=== PATIENT | female | born 1985 | race African-American/Black ===

== ENCOUNTER 2018-09-14 19:25 | Inpatient (IN) | payer MEDICAID ==
[~2018-09-14] VITALS: Ht 170.2 cm; Wt 68.0 kg
--- NOTE | 2018-09-14 19:26 | NUR ---
ED Nurse Note: pt brought in by [facility] R34 from [facility] [place], tonic clonic x 1min witnessed by bystanders, no sz activity with EMS. Pt states she hasn't been taking sz med for long time but states she used to take depakote. pt AA&ox4, gcs=15, skin warm and dry, resp even and unlabored RA, airway intact, no oral trauma or other sx injury nor open wound noted, -n/v/d, VSS, will cont monitor. sz and aspiration precaution started. BS on field 87
[2018-09-14 19:28] VITALS: BP 101/67
[2018-09-14] MEDS ORDERED: DEPAKOTE125 MG PO (19:28)
--- NOTE | 2018-09-14 19:40 | NUR ---
ED Nurse Note: pt states she was at [facility] on 09/11/18 for sz, pt states she hasn't been taking med 4-5days but usually takes depakote, she was supposed to visit her friend in [place]. HARVEY notified.
--- NOTE | 2018-09-14 19:47 | Emergency Room Report ---
History of Present Illness General Chief Complaint: Seizure Source: Patient Present Illness HPI 33-year-old female p/w seizure. Per EMS, patient was in [place]', Patient had witnessed seizure by bystanders , generalized tonic clonic, lasted 1 minutes. Unknown if head hit on ground. + post ictal phase Patient denies tongue biting, no urinary incontinence. Patient has had seizures for several years. Anti seizure medications include Depakote. Patient's that she stopped taking the medication 5 days ago. Unclear why. She is not very cooperative with the history taking. No recent fever, chills, chest pain, sob, cough, n/v/d, abdominal pain. Currently denying BUCKLEY, neck pain, blurry vision, motor or sensory weakness. Allergies: Coded Allergies: No Known Allergies (Unverified , 09/14/18) Patient History Past Medical History: see triage record Past Surgical History: none Pertinent Family History: none Last Menstrual Period: NA Now: No Reviewed Nursing Documentation: PMH: Agreed; PSxH: Agreed Nursing Documentation-PMH Past Medical History: No Stated History Hx Neurological Problems: Yes - SEIZURES Review of Systems All Other Systems: negative except mentioned in HPI Physical Exam Vital Signs Date Time Temp Pulse Resp B/P (MAP) Pulse Ox O2 Delivery O2 Flow Rate FiO2 09/14/18 19:20 98.1 79 14 123/61 98 Room Air Sp02 EP Interpretation: reviewed, normal General Appearance: alert, GCS 15, non-toxic, mild distress Head: normocephalic, atraumatic Eyes: bilateral eye normal inspection, bilateral eye PERRL, bilateral eye EOMI ENT: normal ENT inspection, normal pharynx, normal voice, moist mucus membranes Neck: normal inspection, full range of motion, supple Respiratory: normal inspection, lungs clear, normal breath sounds, no respiratory distress, no retraction, no wheezing, speaking full sentences, chest symmetrical Cardiovascular #1: normal inspection, regular rate, rhythm, no edema, normal capillary refill Cardiovascular #2: 2+ radial (R), 2+ radial (L) Gastrointestinal: normal inspection, non tender, soft, non-distended, no guarding Musculoskeletal: normal inspection, back normal, normal range of motion, non- tender Neurologic: normal inspection, alert, oriented x3, responsive, motor strength/ tone normal, sensory intact, normal gait, speech normal Psychiatric: normal inspection, judgement/insight normal, memory normal Skin: normal inspection, normal color, no rash, warm/dry, well hydrated, normal turgor Procedures Critical Care Time Critical Care Time Critical care time of 40 minutes, was performed in order to assess and manage the high probability of imminent or life threatening deterioration, with frequent reassessment and excludes all billable procedures. Medical Decision Making Diagnostic Impression: Primary Impression: Seizure disorder Additional Impressions: Hypocalcemia Hypokalemia Polysubstance (excluding opioids) dependence ER Course 33-year-old female with p/w seizure DDX: Primary seizure, triggered by infection UTI/PNA vs. dehydration vs. medication non compliance Electrolyte disturbance: hypoglycemia vs. hyponatremia vs. hypocalcemia vs. hypomagnesemia Cardiac: Arrythmia/acs Intracranial pathology: intracranial bleed Tox Plan: BGM EKG, UCG Labs, seizure medication levels, tox labs Consider CT ER course: No further seizures in ED Has been stable during ED stay. AOx4, no neurological signs or symptoms measured corrected calcium is 7.24, which is technically low. in presence of her having seizure, IV calcium was given. unclear for reason of the hypocalcemia also hypokalemic for supplementation was given pt also positive for polysubstance abuse Disposition: Requires admission for seizures and electrolyte disturbances DW Dr Yung Still pending final CT read EKG Diagnostic Results EP Interpretation: Yes Rate: 58 Rhythm: NSR ST Segments: No acute changes ASA given to patient: No Rhythm Strip EP Interpretation: Yes Rate: 60 Rhythm: NSR, no PVCs, no ectopy Chest X-ray CXR: Ordered: Yes 1 view Indication: Chest pain EP interpretation: Yes Interpretation: No consolidation, no effusion, no PTX, no acute cardiopulmonary disease Impression: No acute disease Electronically signed by Blake Mansfield MD Laboratory Tests Test 09/14/18 19:52 09/14/18 19:58 Urine Color Yellow Urine Appearance Clear Urine pH 5 (4.5-8.0) Urine Specific [place] 1.020 (1.005-1.035) Urine Protein 1+ (NEGATIVE) H Urine Glucose (UA) Negative (NEGATIVE) Urine Ketones 1+ (NEGATIVE) H Urine Blood Negative (NEGATIVE) Urine Nitrite Negative (NEGATIVE) Urine Bilirubin Negative (NEGATIVE) Urine Urobilinogen 1 MG/DL (0.0-1.0) H Urine Leukocyte Esterase 1+ (NEGATIVE) H Urine RBC 0 /HPF (0 - 2) Urine WBC 0-2 /HPF (0 - 2) Urine Squamous Epithelial Cells Occasional /LPF Urine Bacteria Few /HPF (NONE) Urine HCG, Qualitative Negative (NEGATIVE) Urine Opiates Screen Negative (NEGATIVE) Urine Barbiturates Screen Negative (NEGATIVE) Phencyclidine (PCP) Screen Negative (NEGATIVE) Urine Amphetamines Screen Positive (NEGATIVE) H Urine Benzodiazepines Screen Negative (NEGATIVE) Urine Cocaine Screen Positive (NEGATIVE) H Urine Marijuana (THC) Screen Positive (NEGATIVE) H White Blood Count 6.9 K/UL (4.8-10.8) Red Blood Count 4.28 M/UL (4.20-5.40) Hemoglobin 10.8 G/DL (12.0-16.0) L Hematocrit 33.9 % (37.0-47.0) L Mean Corpuscular Volume 79 FL (80-99) L Mean Corpuscular Hemoglobin 25.1 PG (27.0-31.0) L Mean Corpuscular Hemoglobin Concent 31.7 G/DL (32.0-36.0) L Red Cell Distribution Width 13.4 % (11.6-14.8) Platelet Count 246 K/UL (150-450) Mean Platelet Volume 7.5 FL (6.5-10.1) Neutrophils (%) (Auto) 62.2 % (45.0-75.0) Lymphocytes (%) (Auto) 27.8 % (20.0-45.0) Monocytes (%) (Auto) 8.3 % (1.0-10.0) Eosinophils (%) (Auto) 0.2 % (0.0-3.0) Basophils (%) (Auto) 1.5 % (0.0-2.0) Sodium Level 145 MMOL/L (136-145) Potassium Level 2.3 MMOL/L (3.5-5.1) *L Chloride Level 114 MMOL/L (98-107) H Carbon Dioxide Level 20 MMOL/L (21-32) L Anion Gap 11 mmol/L (5-15) Blood Urea Nitrogen 10 mg/dL (7-18) Creatinine 0.7 MG/DL (0.55-1.30) Estimate Glomerular Filtration Rate > 60 mL/min (>60) Glucose Level 61 MG/DL (74-106) L Calcium Level 5.9 MG/DL (8.5-10.1) *L Total Bilirubin 0.1 MG/DL (0.2-1.0) L Aspartate Amino Transferase (AST) 15 U/L (15-37) Alanine Aminotransferase (ALT) 8 U/L (12-78) L Alkaline Phosphatase 33 U/L (46-116) L Total Creatine Kinase 108 U/L (26-308) Troponin I 0.009 ng/mL (0.000-0.056) Total Protein 4.4 G/DL (6.4-8.2) L Albumin 2.2 G/DL (3.4-5.0) L Globulin 2.2 g/dL Albumin/Globulin Ratio 1.0 (1.0-2.7) Salicylates Level 2.1 ug/mL (2.8-20) L Acetaminophen Level 8 MCG/ML (10-30) L Serum Alcohol < 3 mg/dL CT/MRI/US Diagnostic Results CT/MRI/US Diagnostic Results : Imaging Test Ordered: CT HEAD Impression normal Last Vital Signs Date Time Temp Pulse Resp B/P (MAP) Pulse Ox O2 Delivery O2 Flow Rate FiO2 09/14/18 19:20 98.1 79 14 123/61 98 Room Air Disposition: ADMITTED INPATIENT Condition: Serious Blake Mansfield M.D. Sep 14, 2018 19:46
--- NOTE | 2018-09-14 20:13 | NUR ---
ED Nurse Note: contacted pharmacy for med.
[2018-09-14 20:15] LABS: BASOPHILS % (AUTO) 1.5 % (0.0-2.0); EOSINOPHILS % (AUTO) 0.2 % (0.0-3.0); HEMATOCRIT 33.9 % (37.0-47.0); HEMOGLOBIN 10.8 G/DL (12.0-16.0); LYMPHOCYTES % (AUTO) 27.8 % (20.0-45.0); MEAN CORPUSCULAR VOLUME 79 FL (80-99); MONOCYTES % (AUTO) 8.3 % (1.0-10.0); NEUTROPHILS % (AUTO) 62.2 % (45.0-75.0); PLATELET COUNT 246 K/UL (150-450); RED BLOOD COUNT 4.28 M/UL (4.20-5.40); RED CELL DISTRIBUTION WIDTH 13.4 % (11.6-14.8); WHITE BLOOD COUNT 6.9 K/UL (4.8-10.8)
[2018-09-14] MEDS ORDERED: Depakote 500mg tab ORAL ONE (20:15)
[2018-09-14 20:18] LABS: APPEARANCE,URINE CLEAR; BILIRUBIN, URINE NEGATIVE (NEGATIVE); GLUCOSE, URINE (UA) NEGATIVE (NEGATIVE); KETONES,URINE 1+ (NEGATIVE); LEUKOCYTE ESTERASE ,URINE 1+ (NEGATIVE); NITRITE,URINE NEGATIVE (NEGATIVE); PH,URINE 5 (4.5-8.0); PROTEIN,URINE 1+ (NEGATIVE); UROBILINOGEN,URINE 1 MG/DL (0.0-1.0)
[2018-09-14 20:20] LABS: COLOR,URINE YELLOW
[2018-09-14 20:30] LABS: ALANINE AMINOTRANSFERASE 8 U/L (12-78); ALBUMIN 2.2 G/DL (3.4-5.0); ALKALINE PHOSPHATASE 33 U/L (46-116); ANION GAP 11 mmol/L (5-15); ASPARTATE AMINO TRANSFERASE 15 U/L (15-37); BILIRUBIN,TOTAL 0.1 MG/DL (0.2-1.0); BLOOD UREA NITROGEN 10 mg/dL (7-18); CARBON DIOXIDE 20 MMOL/L (21-32); CHLORIDE 114 MMOL/L (98-107); CREATINE KINASE 108 U/L (26-308); CREATININE 0.7 MG/DL (0.55-1.30); SODIUM 145 MMOL/L (136-145)
[2018-09-14 20:37] LABS: CALCIUM 5.9 MG/DL (8.5-10.1); POTASSIUM 2.3 MMOL/L (3.5-5.1)
[2018-09-14] MEDS ORDERED: Calcium Gluconate 10% 1 GM in NS 110 ML IVPB ONE (20:45)
[2018-09-14 21:30] VITALS: BP 110/51
--- NOTE | 2018-09-14 22:35 | NUR ---
ED Nurse Note: pt report given RN Jyoti to continue care, pt transferred to tele, vss, no sz activity occured during shift, no neuro changes, vss, NSR on front desk monitor. all belongings sent w/ pt, pt refused vre/cre.
[2018-09-14 23:00] VITALS: BP 114/71
--- NOTE | 2018-09-14 23:24 | NUR ---
NURSE NOTES: Pt. is not cooperating when asked about her history. She states, "I'm sick. Just let me sleep please."
--- NOTE | 2018-09-14 23:28 | NUR ---
NURSE NOTES: Pt. was given 60 meq K Dur PO once and calcium gluconate 10% 1 gm in NS 110ml @ 240cc/hr once in ER.
--- NOTE | 2018-09-14 23:30 | NUR ---
NURSE NOTES: Received pt. at 2300 via gurney from ED. Pt. transferred to bed without any incident. Pt. is A/O x 4. [place] pt. to unit, room, and hospital policies. Received report from CINDY Jacobson. primary school teacher librarian is in placed, IV site intact, asymptomatic and patent. Belongings list checked and accounted. Bed is in the lowest position and locked. Call light within reach. No seizure activity or acute distress noted at this time. Will contact Dr. Gamez for admission orders.
--- NOTE | 2018-09-14 23:36 | NUR ---
NURSE NOTES: Received admission orders from Dr. Gamez. Will note and carry out.
[2018-09-15] VITALS (7 sets, daily range): BP systolic 110–169; BP diastolic 24–84
[2018-09-15] MEDS ORDERED: Acetaminophen 500mg (ES) tab ORAL PRN (00:30)
[2018-09-15] MEDS ORDERED: LORazepam Inj 2mg/ml 1ml IV PRN (00:30)
[2018-09-15] MEDS: 1/2NS w/KCl 20mEq 1000ml 1,000 ML IV SCH ×3 (01:33→23:22)
[2018-09-15 06:41] LABS: BASOPHILS % (AUTO) 1.6 % (0.0-2.0); EOSINOPHILS % (AUTO) 0.9 % (0.0-3.0); HEMATOCRIT 34.2 % (37.0-47.0); LYMPHOCYTES % (AUTO) 35.8 % (20.0-45.0); MEAN CORPUSCULAR VOLUME 79 FL (80-99); MONOCYTES % (AUTO) 9.5 % (1.0-10.0); NEUTROPHILS % (AUTO) 52.2 % (45.0-75.0); PLATELET COUNT 243 K/UL (150-450); RED CELL DISTRIBUTION WIDTH 13.4 % (11.6-14.8); WHITE BLOOD COUNT 5.7 K/UL (4.8-10.8)
--- NOTE | 2018-09-15 07:02 | NUR ---
CASE MANAGEMENT:REVIEW 33 YR OLD FEMALE BIBA FROM [facility] CC: SEIZURE. NOT TAKING MEDS 4-5 DAYS SI: SEIZURE. HYPOCALCEMIA. HYPOKALEMIA 98.0 79 14 123/61 98% ON RA K-2.3 CA-5.9 URINE TOX(+0 AMPHETAMINES, COCAINE AND THC IS: IV CA GLUCONATE KCL 40 MEQ PO DEPAKOTE PO : TO TELEMETRY IS: IVF NS@60/HR DEPAKOTE PO TID INTERQUAL CRITERIA MET
[2018-09-15 07:20] LABS: ALANINE AMINOTRANSFERASE 14 U/L (12-78); ALKALINE PHOSPHATASE 52 U/L (46-116); ANION GAP 11 mmol/L (5-15); ASPARTATE AMINO TRANSFERASE 18 U/L (15-37); BILIRUBIN,TOTAL 0.3 MG/DL (0.2-1.0); BLOOD UREA NITROGEN 12 mg/dL (7-18); CALCIUM 8.6 MG/DL (8.5-10.1); CARBON DIOXIDE 25 MMOL/L (21-32); CHLORIDE 106 MMOL/L (98-107); CREATININE 0.9 MG/DL (0.55-1.30); SODIUM 142 MMOL/L (136-145)
--- NOTE | 2018-09-15 07:25 | NUR ---
NURSE NOTES: I received the patient resting in bed. Patient does not display any signs of distress or SOB. Bed in the lowest position and call light within reach.
--- NOTE | 2018-09-15 07:47 | NUR ---
HAND-OFF: Report given to CINDY Green.
--- NOTE | 2018-09-15 07:51 | Diagnostic Imaging Report ---
Indications: Dizziness and seizure Technique: Spiral acquisitions obtained through the brain. Angled axial and coronal 5 x 5 mm slices were reconstructed. Total dose length product 1291.63 mGycm. CTDI vol(s) 70.38 mGy. Dose reduction achieved using automated exposure control Comparison: Findings: No acute intracranial hemorrhage or edema, mass effect, nor midline shift. Normal george-white differentiation. Normal-sized ventricles and extra-axial CSF spaces. Intact calvarium. Visualized orbits and sinuses are unremarkable. Impression: Negative This agrees with the preliminary interpretation provided overnight by Dr. Mora The CT scanner at [facility] is accredited by the [employer] and the scans are performed using protocols designed to limit radiation exposure to as low as reasonably achievable to attain images of sufficient resolution adequate for diagnostic evaluation.
--- NOTE | 2018-09-15 08:40 | Consultation ---
History of Present Illness General Date patient seen: Sep 15, 2018 Present Illness Allergies: Coded Allergies: No Known Allergies (Unverified , 09/14/18) Medication History Miscellaneous Medications Divalproex Sodium (Depakote), 125 MG PO, (Reported) Patient History Healthcare decision maker Resuscitation status Full Code Advanced Directive on File Physical Exam Last 24 Hour Vital Signs Date Time Temp Pulse Resp B/P (MAP) Pulse Ox O2 Delivery O2 Flow Rate FiO2 09/15/18 04:00 69 09/15/18 04:00 97.5 69 17 121/65 (83) 98 09/15/18 00:00 98.0 71 18 115/72 (86) 99 09/15/18 00:00 58 09/14/18 23:37 Room Air 09/14/18 23:00 97.7 61 18 114/71 (85) 99 09/14/18 22:35 98.8 72 18 108/67 98 Room Air 09/14/18 21:30 98.1 70 18 110/51 98 Room Air 09/14/18 19:28 98.1 68 18 101/67 98 Room Air 09/14/18 19:28 80 18 Room Air 09/14/18 19:20 98.1 79 14 123/61 98 Room Air Laboratory Tests Test 09/14/18 19:52 09/14/18 19:58 09/15/18 05:25 Urine Color Yellow Urine Appearance Clear Urine pH 5 (4.5-8.0) Urine Specific [place] 1.020 (1.005-1.035) Urine Protein 1+ (NEGATIVE) H Urine Glucose (UA) Negative (NEGATIVE) Urine Ketones 1+ (NEGATIVE) H Urine Blood Negative (NEGATIVE) Urine Nitrite Negative (NEGATIVE) Urine Bilirubin Negative (NEGATIVE) Urine Urobilinogen 1 MG/DL (0.0-1.0) H Urine Leukocyte Esterase 1+ (NEGATIVE) H Urine RBC 0 /HPF (0 - 2) Urine WBC 0-2 /HPF (0 - 2) Urine Squamous Epithelial Cells Occasional /LPF Urine Bacteria Few /HPF (NONE) Urine HCG, Qualitative Negative (NEGATIVE) Urine Opiates Screen Negative (NEGATIVE) Urine Barbiturates Screen Negative (NEGATIVE) Phencyclidine (PCP) Screen Negative (NEGATIVE) Urine Amphetamines Screen Positive (NEGATIVE) H Urine Benzodiazepines Screen Negative (NEGATIVE) Urine Cocaine Screen Positive (NEGATIVE) H Urine Marijuana (THC) Screen Positive (NEGATIVE) H White Blood Count 6.9 K/UL (4.8-10.8) 5.7 K/UL (4.8-10.8) Red Blood Count 4.28 M/UL (4.20-5.40) 4.30 M/UL (4.20-5.40) Hemoglobin 10.8 G/DL (12.0-16.0) L 11.0 G/DL (12.0-16.0) L Hematocrit 33.9 % (37.0-47.0) L 34.2 % (37.0-47.0) L Mean Corpuscular Volume 79 FL (80-99) L 79 FL (80-99) L Mean Corpuscular Hemoglobin 25.1 PG (27.0-31.0) L 25.5 PG (27.0-31.0) L Mean Corpuscular Hemoglobin Concent 31.7 G/DL (32.0-36.0) L 32.0 G/DL (32.0-36.0) Red Cell Distribution Width 13.4 % (11.6-14.8) 13.4 % (11.6-14.8) Platelet Count 246 K/UL (150-450) 243 K/UL (150-450) Mean Platelet Volume 7.5 FL (6.5-10.1) 7.5 FL (6.5-10.1) Neutrophils (%) (Auto) 62.2 % (45.0-75.0) 52.2 % (45.0-75.0) Lymphocytes (%) (Auto) 27.8 % (20.0-45.0) 35.8 % (20.0-45.0) Monocytes (%) (Auto) 8.3 % (1.0-10.0) 9.5 % (1.0-10.0) Eosinophils (%) (Auto) 0.2 % (0.0-3.0) 0.9 % (0.0-3.0) Basophils (%) (Auto) 1.5 % (0.0-2.0) 1.6 % (0.0-2.0) Sodium Level 145 MMOL/L (136-145) 142 MMOL/L (136-145) Potassium Level 2.3 MMOL/L (3.5-5.1) *L 4.0 MMOL/L (3.5-5.1) # Chloride Level 114 MMOL/L (98-107) H 106 MMOL/L (98-107) Carbon Dioxide Level 20 MMOL/L (21-32) L 25 MMOL/L (21-32) Anion Gap 11 mmol/L (5-15) 11 mmol/L (5-15) Blood Urea Nitrogen 10 mg/dL (7-18) 12 mg/dL (7-18) Creatinine 0.7 MG/DL (0.55-1.30) 0.9 MG/DL (0.55-1.30) Estimat Glomerular Filtration Rate > 60 mL/min (>60) > 60 mL/min (>60) Glucose Level 61 MG/DL (74-106) L 79 MG/DL (74-106) Calcium Level 5.9 MG/DL (8.5-10.1) *L 8.6 MG/DL (8.5-10.1) # Total Bilirubin 0.1 MG/DL (0.2-1.0) L 0.3 MG/DL (0.2-1.0) Aspartate Amino Transf (AST/SGOT) 15 U/L (15-37) 18 U/L (15-37) Alanine Aminotransferase (ALT/SGPT) 8 U/L (12-78) L 14 U/L (12-78) Alkaline Phosphatase 33 U/L (46-116) L 52 U/L (46-116) Total Creatine Kinase 108 U/L (26-308) Troponin I 0.009 ng/mL (0.000-0.056) Total Protein 4.4 G/DL (6.4-8.2) L 6.0 G/DL (6.4-8.2) #L Albumin 2.2 G/DL (3.4-5.0) L 3.0 G/DL (3.4-5.0) L Globulin 2.2 g/dL 3.0 g/dL Albumin/Globulin Ratio 1.0 (1.0-2.7) 1.0 (1.0-2.7) Salicylates Level 2.1 ug/mL (2.8-20) L Acetaminophen Level 8 MCG/ML (10-30) L Valproic Acid (Depakene) Level 3 MCG/ML (50-100) L Serum Alcohol < 3 mg/dL Height (Feet): 5 Height (Inches): 7.00 Weight (Pounds): 150 Medications Current Medications Medications (Trade) Dose Ordered Sig/Alfonzo Route PRN Reason Start Time Stop Time Status Last Admin Dose Admin Acetaminophen (Tylenol) 500 mg Q6HR PRN ORAL Mild Pain/Temp > 100.5 09/15/18 00:30 10/15/18 00:29 Divalproex Sodium (Depakote) 250 mg TID ORAL 09/15/18 09:00 10/15/18 08:59 Lorazepam (Ativan 2mg/ml 1ml) 1 mg Q2H PRN IV For Seizures 09/15/18 00:30 09/22/18 00:29 Sodium 1,000 ml @ 60 mls/hr [id number] IV 09/15/18 00:30 10/15/18 00:29 09/15/18 01:33 Assessment/Plan Assessment/Plan (1) Polysubstance abuse (2) Lumbago Seen dictated. Kevin Mata Sep 15, 2018 08:40
--- NOTE | 2018-09-15 09:30 | NUR ---
NURSE NOTES: I went to the room to administer morning medications. Patient resting in bed. Patient educated about using the call light when she needs to go to the restroom. Patient verbalized understanding. Bed in the lowest position and call light within reach.
--- NOTE | 2018-09-15 10:06 | Diagnostic Imaging Report ---
Indication: Cough Technique: One view of the chest Comparison: none Findings: Lungs and pleural spaces are clear. Heart size is normal Impression: No acute process
[2018-09-15] MEDS ORDERED: Milk of Magnesia 30ml Ud ORAL PRN (11:30)
[2018-09-15] MEDS ORDERED: Bisacodyl EC 5mg tab ORAL PRN (11:30)
--- NOTE | 2018-09-15 11:51 | NUR ---
Social Service Note Patient is alert, guarded and verbally responsive. Patient refused to answer any questions regarding medical, mental or substance abuse history. Patient asked SW to contact her friend Charbel Gomez [phone]. СВЕТЛАНА spoke with Charbel who states patient is not homeless. Patient lives between her grandmother Mrs. Baxter [phone] and mother Essence [phone]. Charbel states last week patient's mother brought patient to [facility] for evaluation. Patient was placed on a hold. Charbel states he is surprised that family was not contacted that patient was released from the hospital. СВЕТЛАНА explained that patient is an adult and the hospital doesn't have an obligation to notify family of discharge. Charbel states he was aware discharge was impending since he left money for patient to obtain transportation home. Charbel states patient will return to her family upon discharge and he may be available to assist with transportation. Message left for patient's mother Essence. СВЕТЛАНА spoke with grandmother who states patient will not be returning to her home at this time and will need to return to her mother's home. Mother lives in [place]. Patient will require prescriptions upon discharge. Will monitor and follow up.
--- NOTE | 2018-09-15 14:12 | NUR ---
RADIOLOGY DEPT., LUMBAR SPINE X-RAY DONE.-P.DYE
--- NOTE | 2018-09-15 17:13 | Consultation ---
Consult Note Consult Note 33-year-old female p/w seizure. Per EMS, patient was in [facility], Patient had witnessed seizure by bystanders , generalized tonic clonic, lasted 1 minutes. Unknown if head hit on ground. + post ictal phase Patient denies tongue biting, no urinary incontinence. Patient has had seizures for several years. Anti seizure medications include Depakote. Patient's that she stopped taking the medication 5 days ago. Unclear why. She is not very cooperative with the history taking. No recent fever, chills, chest pain, sob, cough, n/v/d, abdominal pain. Currently denying BUCKLEY, neck pain, blurry vision, motor or sensory weakness. interviewed data reviewed examined . Assessment/Plan Sz- abnormal chemistry and Lytes on admission, now corrected Anemia IV Hydrate- Depakote Anemia Anirudh Mittal MD Sep 15, 2018 17:13
--- NOTE | 2018-09-15 17:23 | Diagnostic Imaging Report ---
Indication: Lumbar spine pain Technique: 3 views of the lumbar spine Comparison: None Findings: When alignment is normal. Vertebral body heights are preserved. Disc spaces are preserved. Pedicles are intact. Sacral arches are preserved. Sacroiliac joint spaces are preserved Impression: Negative
[2018-09-15] MEDS: Docusate 100mg cap ORAL SCH (17:58)
--- NOTE | 2018-09-15 19:38 | NUR ---
HAND-OFF: Report given to Ying Martinez RN.
--- NOTE | 2018-09-15 19:52 | NUR ---
NURSE NOTES: Received report from CINDY Green. Patient is awake lying semi-jiménez's; resting comfortably. No signs of acute distress noted; complains of some pain. AOx4; able to make needs known. Checked IV site, lines, and IV rate; patent and running. No erythema, bleeding, or infiltration noted. Bed at lowest position, brakes on, siderails up x2. Siderails padded following seizure precautions. Call light within reach. Will continue to monitor.
--- NOTE | 2018-09-15 20:21 | NUR ---
NURSE NOTES: Called Dr. Gamez regarding patient's complaint of nausea and 7/10 left sided chest pain. Received order for Zofran 4mg IV q6hr PRN and to call magnetic prospecting supervisor for chest pain issues. Noted and carried out. Also informed him that no cardiology consult is on the case yet.
--- NOTE | 2018-09-15 20:34 | NUR ---
NURSE NOTES: Received new orders from Dr. Gamez for Mylanta 30 mls PO q4hr PRN and to call Dr. Valenzuela for any cardiac related issues. Noted and carried out.
[2018-09-15] MEDS: Depakote 500mg tab ORAL SCH (20:47)
--- NOTE | 2018-09-15 23:58 | Consultation ---
History of Present Illness General Chief Complaint: Seizure Present Illness Allergies: Coded Allergies: No Known Allergies (Unverified , 09/14/18) Medication History Miscellaneous Medications Divalproex Sodium (Depakote), 125 MG PO, (Reported) Patient History Healthcare decision maker Resuscitation status Full Code Advanced Directive on File Physical Exam Last 24 Hour Vital Signs Date Time Temp Pulse Resp B/P (MAP) Pulse Ox O2 Delivery O2 Flow Rate FiO2 09/15/18 21:00 Room Air 09/15/18 20:00 98.0 62 20 134/84 (101) 100 09/15/18 20:00 61 09/15/18 16:14 77 09/15/18 16:00 99.0 85 18 154/24 (67) 100 09/15/18 12:21 58 131/76 (94) 09/15/18 12:00 99.5 84 24 169/80 (109) 95 09/15/18 11:29 57 09/15/18 09:00 Room Air 09/15/18 08:00 97.6 61 18 110/68 (82) 100 09/15/18 07:44 64 09/15/18 04:00 69 09/15/18 04:00 97.5 69 17 121/65 (83) 98 09/15/18 00:00 98.0 71 18 115/72 (86) 99 09/15/18 00:00 58 Intake and Output 09/14/18 09/15/18 19:00 07:00 # Voids 2 Laboratory Tests Test 09/15/18 05:25 White Blood Count 5.7 K/UL (4.8-10.8) Red Blood Count 4.30 M/UL (4.20-5.40) Hemoglobin 11.0 G/DL (12.0-16.0) L Hematocrit 34.2 % (37.0-47.0) L Mean Corpuscular Volume 79 FL (80-99) L Mean Corpuscular Hemoglobin 25.5 PG (27.0-31.0) L Mean Corpuscular Hemoglobin Concent 32.0 G/DL (32.0-36.0) Red Cell Distribution Width 13.4 % (11.6-14.8) Platelet Count 243 K/UL (150-450) Mean Platelet Volume 7.5 FL (6.5-10.1) Neutrophils (%) (Auto) 52.2 % (45.0-75.0) Lymphocytes (%) (Auto) 35.8 % (20.0-45.0) Monocytes (%) (Auto) 9.5 % (1.0-10.0) Eosinophils (%) (Auto) 0.9 % (0.0-3.0) Basophils (%) (Auto) 1.6 % (0.0-2.0) Sodium Level 142 MMOL/L (136-145) Potassium Level 4.0 MMOL/L (3.5-5.1) # Chloride Level 106 MMOL/L (98-107) Carbon Dioxide Level 25 MMOL/L (21-32) Anion Gap 11 mmol/L (5-15) Blood Urea Nitrogen 12 mg/dL (7-18) Creatinine 0.9 MG/DL (0.55-1.30) Estimat Glomerular Filtration Rate > 60 mL/min (>60) Glucose Level 79 MG/DL (74-106) Calcium Level 8.6 MG/DL (8.5-10.1) # Magnesium Level 1.8 MG/DL (1.8-2.4) Total Bilirubin 0.3 MG/DL (0.2-1.0) Aspartate Amino Transf (AST/SGOT) 18 U/L (15-37) Alanine Aminotransferase (ALT/SGPT) 14 U/L (12-78) Alkaline Phosphatase 52 U/L (46-116) C-Reactive Protein, Quantitative < 0.4 mg/dL (0.00-0.90) Total Protein 6.0 G/DL (6.4-8.2) #L Albumin 3.0 G/DL (3.4-5.0) L Globulin 3.0 g/dL Albumin/Globulin Ratio 1.0 (1.0-2.7) Rapid Plasma Reagin Pending Treponema pallidum Ab (FTA-ABS) Pending Height (Feet): 5 Height (Inches): 7.00 Weight (Pounds): 150 Medications Current Medications Medications (Trade) Dose Ordered Sig/Alfonzo Route PRN Reason Start Time Stop Time Status Last Admin Dose Admin Acetaminophen (Tylenol) 500 mg Q6HR PRN ORAL Mild Pain/Temp > 100.5 09/15/18 00:30 10/15/18 00:29 Al Hydroxide/Mg Hydroxide (Mylanta) 30 ml Q4H PRN ORAL DYSPEPSIA 09/15/18 20:45 10/15/18 20:44 09/15/18 20:47 Bisacodyl (Dulcolax) 10 mg DAILYPRN PRN ORAL Constipation 09/15/18 11:30 10/15/18 11:29 09/15/18 20:47 Divalproex Sodium (Depakote) 500 mg EVERY 12 HOURS ORAL 09/15/18 21:00 10/15/18 20:59 09/15/18 20:47 Docusate Sodium (Colace) 100 mg TWICE A DAY ORAL 09/15/18 18:00 10/15/18 17:59 09/15/18 17:58 Gabapentin (Neurontin) 300 mg THREE TIMES A DAY ORAL 09/15/18 09:00 10/15/18 08:59 09/15/18 17:58 Lidocaine (Lidoderm 5% PATCH) 1 patch DAILY TDERMAL 09/15/18 09:00 10/15/18 08:59 09/15/18 09:23 Lorazepam (Ativan 2mg/ml 1ml) 1 mg Q2H PRN IV For Seizures 09/15/18 00:30 09/22/18 00:29 Magnesium Hydroxide (Mom) 30 ml Q4H PRN ORAL Constipation 09/15/18 11:30 10/15/18 11:29 09/15/18 16:07 Ondansetron HCl (Zofran) 4 mg Q6H PRN IVP Nausea & Vomiting 09/15/18 20:30 10/15/18 20:29 09/15/18 20:47 Sodium 1,000 ml @ 60 mls/hr [id number] IV 09/15/18 00:30 10/15/18 00:29 09/15/18 23:22 Emilie Steward MD Sep 15, 2018 23:58
[2018-09-16] VITALS: BP 114/62
--- NOTE | 2018-09-16 00:30 | Consultation ---
DATE OF CONSULTATION: 09/15/2018 NEUROLOGICAL CONSULTATION: CONSULTING PHYSICIAN: Cruz Echevarria M.D. CHIEF COMPLAINT: This appears to be the first [facility] admissions for this 33-year-old woman who states she is "bipolar and schizophrenic" with a seizure history going back in the childhood. She was admitted with a chief complaint of [address] [facility] today, which lasted about a minute. HISTORY OF PRESENT ILLNESS: The patient apparently had a seizure disorder beginning at the age of 12 or 13 years old. She got treated at that time. She cannot give any history. She did have blackout spells at that time. She had an MRI and CT scans of the brain. The patient may have had seizures and awaken at various hospitals. Last month, she apparently was in [facility] for 4 to 5 days after the last seizure. The patient is drug dependent personality and takes cocaine and amphetamines and she could have been "slamming" lately. It is unclear what workup she has had. She probably had an EEG, but I do not have any reports. Today, the patient was in [employer] and had a generalized tonic-clonic seizure lasting about a minute. There is a positive postictal phase. She apparently bit her tongue on the right side. She tells me she has stopped taking her medications at least 5 days prior to her seizure. She is on Depakote. It sounds like 500 mg twice a day. The patient has a history of headaches. She complains of muscle weakness, but she denies incontinence. She did bite the right side of her tongue. Yesterday, she felt fatigued and numb like her usual. She denies any head injury, strokes. There is no history of meningitis or encephalitis. The patient was brought to the emergency room. Her CBC revealed she was mildly anemic with a hemoglobin of 10.8 and low indices, platelet count is 246,000, and white count was 6900. Sodium on admission was 145 with a potassium of 2.3 and a calcium of 5.9. Her liver function tests were actually low. Magnesium today was 1.8. The patient had a CT scan of her brain and chest x-ray, both of which were pretty much negative. The urine drug screen was positive for amphetamines, cocaine, and marijuana. The valproic acid level was 3. An EKG revealed sinus bradycardia, otherwise was normal. The patient was started on fluids, given 1 bag of calcium carbonate, given one 500 mg oral dose of Depakote and 2 doses 250 mg starting at 3 times a day. She is also on Neurontin 300 mg 3 times a day. Lidocaine patch. Lorazepam was given 2 mg for seizures. I was asked to see the patient in neurologic consultation. The patient does complain of diplopia, but figures across each other. She also complains of blurred vision for both distance and near. There is no dysarthria or dysphagia. Her hearing is decreased bilaterally, right side is worse than the left. She does complain of tinnitus and dizzy spells right before seizures. Her seizures are poorly described, generally last a few minutes. She blacks out suddenly. The patient complains of paresthesias of the toes. Dizzy spells are "all of the time" actually take out. Her father may have had a seizure disorder. She does not know anything about her family. PAST MEDICAL HISTORY/PAST MEDICAL ILLNESSES: 1. The patient claims she has hypertension, but is on no medications. 2. She is "prediabetic." ALLERGIES: She states that she has no allergies, but has sinus disease. HABITS: She probably was a heavy drinker, but it is hard to get a history out of her. She does illegal drugs. See above. FAMILY HISTORY: Completely unavailable. REVIEW OF SYSTEMS: GASTROINTESTINAL: The patient has a lot of nausea and vomiting usually prior to her seizures and does not eat. CONSTITUTIONAL: She claims to lost 50 to 60 pounds in the last 7 months. She now weighs 130 to 140 pounds and 5 feet 8 inches tall. PHYSICAL EXAMINATION: VITAL SIGNS: The blood pressure is 154/24 and it has been as high as 169 out of 80 today, yesterday was much less below 122 systolic and 72 diastolic. Pulse is 77 and regular, respiration rate is 18, pulse oximetry is 100, temperature is 99 degrees, earlier today of 99.5. HEENT: Examination of head, ears, eyes, nose, mouth, and throat reveals poor dentition. She had a small lesion on the lateral part of the right side of her tongue. NECK: The neck was supple with tenderness. There is no limitation of motion. Carotids are +2. There were no bruits. LUNGS: Clear to auscultation. CARDIOVASCULAR: PMI is in the fifth intercostal space, midclavicular. JVP is normal. The patient had a normal S1 and S2 is physiologically split. I could not hear an S3, S4, murmurs, or rubs. ABDOMEN: Abdomen was nearly scaphoid. Bowel sounds intact. No tenderness, masses, or organomegaly appreciated. BACK: There is diffuse tenderness throughout her back. EXTREMITIES: Extremities are basically normal. NEUROLOGIC EXAMINATION: MENTAL STATUS: She was awake and pretty much alert. Judgment could not be tested. Affect was somewhat flat. Memory, past memory is intact to her birthday and probably the high school which she went to. She was home schooled for a period of time. Immediate recall is 3/3 objects. Recent recall is 1/3 objects, 2/2 with prompting. Intellect similarities could not be done. Orientation, she knew it is 09/15/2018 and it was Thursday. Place, she is at [facility]. Person, she is oriented to person. Language functions, speech is basically fluent without paraphasias. Her repetition is intact. She could repeat nos, ands, or buts. She spelled "world" backwards dlorw. There was no right or left confusion or finger agnosia. CRANIAL NERVE EXAMINATION: CRANIAL NERVE II: Visual quezada are intact to confrontation. CRANIAL NERVES III, IV, AND : Extraocular motility was full. There are complaints of diplopia, especially in the right up gaze, but not on down gaze. Covering either eye revealed that she still complained of double vision. Objects can be on gaze. Her pupils are about 7 mm, round, light reactive. CRANIAL NERVE V: Facial and corneal sensation were intact. Pterygoid strength was 5/5. CRANIAL NERVE VII: Facial strength was 5/5 bilaterally. CRANIAL NERVE VIII: Auditory acuity was intact bilaterally to loud whisper. CRANIAL NERVE IX AND X: Gag was intact bilaterally. CRANIAL NERVE XI: Sternocleidomastoid strength is 5/5. CRANIAL NERVE XII: Tongue protrudes in the midline without fasciculations or atrophy. MUSCLE EXAMINATION: Muscle bulk and tone are normal. Strength is 5/5 proximally and distally without pronator drift. REFLEXES: +1 to +2 in the upper extremities at the knees and ankles with downgoing toes on testing for Babinski response. COORDINATION: Xnwmmy-[id number], [id number]-[id number] testing, rapid alternating movements are normal. GAIT AND STATION: Was not tested. SENSORY EXAMINATION: Proprioception, fine touch, and pinprick were normal in all the extremities. IMPRESSION: This patient is a drug dependent personality. Exact cause of her seizures is not clear. In other words, the in the past cause of her seizures is not clear. Maybe due to a congenital lesion possibly a migration disorder. Obviously, the seizures now are due to drug withdrawal and also probable drug abuse as well. The patient should be continued on Depakote 500 mg b.i.d. and actually give it t.i.d. The patient probably is going to be here very long and would probably obtain the medical records from [facility] if we can. The exact localization of the seizure is unclear, probably frontal or temporal lobes, most probably temporal lobes because of the postictal state. PLAN: 1. To use Depakote 500 mg p.o. b.i.d. 2. RPR and FTA. 3. I will speak to you about this case. Thank you for this interesting case. Cruz Echevarria MD DR: FINN JOB#: [id number] CC:
[2018-09-16 04:00] VITALS: BP 133/76
--- NOTE | 2018-09-16 04:30 | History and Physical Report ---
DATE OF ADMISSION: 09/14/2018 HISTORY OF PRESENT ILLNESS: The patient came with a history of seizures, ran out of her Depako and also polysubstance drug abuse. The patient was also found to be hypokalemic and hypocalcemic. CT scan of brain did not show anything acute. The patient did have syncopal episode with chest pain and vomiting. The patient, however, states that she is having seizures for long time and has history of head trauma as well. The patient again had seizure yesterday while in [facility] as well. Also, complains of generalized pain. Denies vomiting or diarrhea. Denies fever or chills. Denies headaches. Denies shortness of breath or cough. PAST MEDICAL HISTORY: History of seizures, constipation, hypertension, and head trauma. PAST SURGICAL HISTORY: History of abscess removed. She has a history of laparoscopic tubal surgery. SOCIAL HISTORY: History of smoking, history of drug abuse, and history of alcohol abuse. Ran out of [facility], the patient takes Depakote consequently. REVIEW OF SYSTEMS: HEENT: Denies headaches. RESPIRATORY: Denies shortness of breath. Denies cough. CARDIOVASCULAR: The patient did have chest pain. No orthopnea. GASTROINTESTINAL: Denies nausea or diarrhea. The patient did have vomiting. EXTREMITIES: She had generalized pain. 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 PHYSICAL EXAMINATION: VITAL SIGNS: Temperature 99.5 degrees, pulse is 84, and blood pressure 169/80. HEENT: PERRLA. NECK: Supple. No lymphadenopathy. CHEST: Clear to auscultation. CARDIOVASCULAR: Regular rate and rhythm. No murmurs or extra sounds. GASTROINTESTINAL: Soft, nontender, and nondistended. No organomegaly. EXTREMITIES: No edema. Reflexes equal on both sides. Moves all four extremities. LABORATORY DATA: WBC of 6.9, hemoglobin of 12.8, and platelets 346,000. Sodium 145, potassium 2.3, chloride 114, BUN of 10, creatinine of 0.7, and glucose of 61. ASSESSMENT AND PLAN: Hypokalemia, hypocalcemia, and breakthrough seizure. The patient also has history of depression. I have asked Dr. Steward, Dr. Dennis, Dr. Echevarria, Dr. Mahoney, and Dr. Valenzuela to see the patient for the chest pain as well as for the above-mentioned diagnoses and treatment and for the treatment of seizures as well. Daniel Gamez M.D. DR: ARELY JOB#: [id number] CC:
--- NOTE | 2018-09-16 04:46 | NUR ---
NURSE NOTES: Assisted patient to the bathroom; patient is in no acute distress.
--- NOTE | 2018-09-16 06:45 | Consultation ---
DATE OF CONSULTATION: 09/15/2018 PAIN MANAGEMENT CONSULTATION CONSULTING PHYSICIAN: Ermelinda Dennis M.D. ATTENDING/REFERRING PHYSICIAN: Daniel Gamez M.D. PHYSICIAN DUMBWAITER OPERATOR: Deja Foley CHIEF COMPLAINT: Back pain. HISTORY OF PRESENT ILLNESS: This is a 33-year-old female who is being seen on the telemetry floor of [facility] for initial pain management consultation. The patient was admitted under the care of Dr. Gamez due to complaints of seizure disorder, hypokalemia, has been admitted due to low back pain and seizure disorder, found to be positive for cocaine and methamphetamine, which she admits to taking. We were consulted to help the patient to have adequate pain control while here in the hospital. PAST MEDICAL HISTORY: Denies. SOCIAL HISTORY: She is a smoker of tobacco, drinks alcohol, cocaine, and methamphetamine. ALLERGIES: No known drug allergies. MEDICATIONS: Depakote. REVIEW OF SYSTEMS: Denies rash, fever, chills, sweating, dizziness, drowsiness, blurred vision, sore throat, or change in weight. No shortness of breath. No bowel or bladder incontinence. No dysuria. She is complaining of back pain. PHYSICAL EXAMINATION: GENERAL: Alert, awake, and oriented. VITAL SIGNS: Blood pressure 121/65, heart rate 69, oxygen saturation 98%, respirations 19, and temperature 97.5 degrees Fahrenheit. HEENT: PERRLA. NECK: Range of motion is full in all direction. No tenderness to paracervical muscles. No adenopathy. LUNGS: Clear bilaterally. HEART: Regular. ABDOMEN: Benign. BACK: Range of motion is decreased in flexion and extension with tenderness to paraspinal muscles. No tenderness to trapezius and rhomboid muscles. EXTREMITIES: Upper and lower extremity range of motion is full in all directions. No cyanosis. No clubbing. No edema. Sensory is intact. Reflexes are unobtainable. No adenopathy. ASSESSMENT AND PLAN: The patient is a 33-year-old female with lumbago, polysubstance abuse. The patient will be started on lidocaine patch to be applied to the back at the site of the pain 12 hours on and 12 hours off, Neurontin 300 mg tablet three times a day, as well as x-ray of the lumbar spine to rule out any pathology. The patient was discussed with Dr. Dennis and Dr. Dennis concurred. We will follow the patient. Thank you very much for the courtesy of this consultation. Ermelinda Dennis M.D. YESSENIA Downey DR: Justina JOB#: [id number] CC: JABIER
--- NOTE | 2018-09-16 07:00 | History and Physical Report ---
DATE OF ADMISSION: 09/14/2018 HISTORY OF PRESENT ILLNESS: The patient came with a history of seizures, ran out of her Depako and also polysubstance drug abuse. The patient was also found to be hypokalemic and hypocalcemic. CT scan of brain did not show anything acute. The patient did have syncopal episode with chest pain and vomiting. The patient, however, states that she is having seizures for long time and has history of head trauma as well. The patient again had seizure yesterday while in [facility] as well. Also, complains of generalized pain. Denies vomiting or diarrhea. Denies fever or chills. Denies headaches. Denies shortness of breath or cough. PAST MEDICAL HISTORY: History of seizures, constipation, hypertension, and head trauma. PAST SURGICAL HISTORY: History of abscess removed. She has a history of laparoscopic tubal surgery. SOCIAL HISTORY: History of smoking, history of drug abuse, and history of alcohol abuse. Ran out of [facility], the patient takes Depakote consequently. REVIEW OF SYSTEMS: HEENT: Denies headaches. RESPIRATORY: Denies shortness of breath. Denies cough. CARDIOVASCULAR: The patient did have chest pain. No orthopnea. GASTROINTESTINAL: Denies nausea or diarrhea. The patient did have vomiting. EXTREMITIES: She had generalized pain. 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. PHYSICAL EXAMINATION: VITAL SIGNS: Temperature 99.5 degrees, pulse is 84, and blood pressure 169/80. HEENT: PERRLA. NECK: Supple. No lymphadenopathy. CHEST: Clear to auscultation. CARDIOVASCULAR: Regular rate and rhythm. No murmurs or extra sounds. GASTROINTESTINAL: Soft, nontender, and nondistended. No organomegaly. EXTREMITIES: No edema. Reflexes equal on both sides. Moves all four extremities. LABORATORY DATA: WBC of 6.9, hemoglobin of 12.8, and platelets 346,000. Sodium 145, potassium 2.3, chloride 114, BUN of 10, creatinine of 0.7, and glucose of 61. ASSESSMENT AND PLAN: Hypokalemia, hypocalcemia, and breakthrough seizure. The patient also has history of depression. I have asked Dr. Steward, Dr. Dennis, Dr. Echevarria, Dr. Mahoney, and Dr. Valenzuela to see the patient for the chest pain as well as for the above-mentioned diagnoses and treatment and for the treatment of seizures as well. Daniel Gamez M.D. DR: ARELY JOB#: [id number] CC:
[2018-09-16 07:13] LABS: BASOPHILS % (AUTO) 1.5 % (0.0-2.0); EOSINOPHILS % (AUTO) 1.2 % (0.0-3.0); HEMATOCRIT 36.5 % (37.0-47.0); HEMOGLOBIN 11.8 G/DL (12.0-16.0); LYMPHOCYTES % (AUTO) 42.7 % (20.0-45.0); MEAN CORPUSCULAR VOLUME 79 FL (80-99); MONOCYTES % (AUTO) 8.7 % (1.0-10.0); NEUTROPHILS % (AUTO) 45.8 % (45.0-75.0); PLATELET COUNT 277 K/UL (150-450); RED BLOOD COUNT 4.61 M/UL (4.20-5.40); RED CELL DISTRIBUTION WIDTH 13.3 % (11.6-14.8); WHITE BLOOD COUNT 5.4 K/UL (4.8-10.8)
[2018-09-16 07:14] LABS: ALANINE AMINOTRANSFERASE 14 U/L (12-78); ALBUMIN 3.2 G/DL (3.4-5.0); ALKALINE PHOSPHATASE 57 U/L (46-116); ANION GAP 10 mmol/L (5-15); ASPARTATE AMINO TRANSFERASE 16 U/L (15-37); BILIRUBIN,TOTAL 0.2 MG/DL (0.2-1.0); BLOOD UREA NITROGEN 13 mg/dL (7-18); CALCIUM 8.7 MG/DL (8.5-10.1); CARBON DIOXIDE 26 MMOL/L (21-32); CHLORIDE 103 MMOL/L (98-107); CHOLESTEROL 136 MG/DL (< 200); FERRITIN 90 NG/ML (8-388); GAMMA GLUTAMYL TRANSPEPTIDASE 9 U/L (5-85); HDL CHOLESTEROL 46 MG/DL (40-60); PHOSPHORUS 3.5 MG/DL (2.5-4.9); POTASSIUM 4.1 MMOL/L (3.5-5.1); SODIUM 139 MMOL/L (136-145); TRIGLYCERIDES 43 MG/DL (30-150)
--- NOTE | 2018-09-16 07:17 | NUR ---
HAND-OFF: Report given to CINDY Green. Patient is awake on the bedside commode having a bowel movement. In stable condition.
--- NOTE | 2018-09-16 07:25 | NUR ---
NURSE NOTES: I received the patient awake and resting in bed. Patient alert and oriented x4. Patient does not display any signs of distress or SOB. Bed in the lowest position and call light within reach. I will continue to monitor the patient and implement care.
[2018-09-16 07:34] LABS: % IRON SATURATION 35 % (15-50); IRON 82 ug/dL (50-175); TOTAL IRON BINDING CAPACITY 233 ug/dL (250-450)
[2018-09-16 08:00] VITALS: BP 112/70
[2018-09-16] MEDS: Docusate 100mg cap ORAL SCH ×2 (08:29→18:33)
[2018-09-16] MEDS: Depakote 500mg tab ORAL SCH (08:29)
--- NOTE | 2018-09-16 10:27 | NUR ---
CASE MANAGEMENT:REVIEW 09/16/18 SI: SEIZURE 97.7 92 25 112/70 93% ON RA H/H-11.8/36.6 IS: IVF@60/HR DEPAKOTE PO Q12 COLACE PO BID NEURONTIN PO TID : TELEMETRY STATUS
--- NOTE | 2018-09-16 11:51 | Consultation ---
History of Present Illness General Chief Complaint: Seizure Present Illness Allergies: Coded Allergies: No Known Allergies (Unverified , 09/14/18) Medication History Miscellaneous Medications Divalproex Sodium (Depakote), 125 MG PO, (Reported) Patient History Healthcare decision maker Resuscitation status Full Code Advanced Directive on File Physical Exam Last 24 Hour Vital Signs Date Time Temp Pulse Resp B/P (MAP) Pulse Ox O2 Delivery O2 Flow Rate FiO2 09/16/18 08:05 Room Air 09/16/18 08:00 97.7 92 25 112/70 (84) 93 09/16/18 07:41 54 09/16/18 04:00 97.0 98 16 133/76 (95) 99 09/16/18 04:00 75 09/16/18 00:00 71 09/16/18 00:00 97.0 64 20 114/62 (79) 98 09/15/18 21:00 Room Air 09/15/18 20:00 98.0 62 20 134/84 (101) 100 09/15/18 20:00 61 09/15/18 16:14 77 09/15/18 16:00 99.0 85 18 154/24 (67) 100 09/15/18 12:21 58 131/76 (94) 09/15/18 12:00 99.5 84 24 169/80 (109) 95 Intake and Output 09/15/18 09/16/18 18:59 06:59 Intake Total 840 ml 938 ml Balance 840 ml 938 ml Intake Oral 360 ml 240 ml IV Total 480 ml 698 ml # Voids 3 # Bowel Movements 1 Laboratory Tests Test 09/16/18 05:40 09/16/18 05:45 White Blood Count 5.4 K/UL (4.8-10.8) Red Blood Count 4.61 M/UL (4.20-5.40) Hemoglobin 11.8 G/DL (12.0-16.0) L Hematocrit 36.5 % (37.0-47.0) L Mean Corpuscular Volume 79 FL (80-99) L Mean Corpuscular Hemoglobin 25.7 PG (27.0-31.0) L Mean Corpuscular Hemoglobin Concent 32.3 G/DL (32.0-36.0) Red Cell Distribution Width 13.3 % (11.6-14.8) Platelet Count 277 K/UL (150-450) Mean Platelet Volume 7.4 FL (6.5-10.1) Neutrophils (%) (Auto) 45.8 % (45.0-75.0) Lymphocytes (%) (Auto) 42.7 % (20.0-45.0) Monocytes (%) (Auto) 8.7 % (1.0-10.0) Eosinophils (%) (Auto) 1.2 % (0.0-3.0) Basophils (%) (Auto) 1.5 % (0.0-2.0) Sodium Level 139 MMOL/L (136-145) Potassium Level 4.1 MMOL/L (3.5-5.1) Chloride Level 103 MMOL/L (98-107) Carbon Dioxide Level 26 MMOL/L (21-32) Anion Gap 10 mmol/L (5-15) Blood Urea Nitrogen 13 mg/dL (7-18) Creatinine 1.0 MG/DL (0.55-1.30) Estimat Glomerular Filtration Rate > 60 mL/min (>60) Glucose Level 83 MG/DL (74-106) Hemoglobin A1c 5.2 % (4.3-6.0) Uric Acid 5.6 MG/DL (2.6-7.2) Calcium Level 8.7 MG/DL (8.5-10.1) Phosphorus Level 3.5 MG/DL (2.5-4.9) Magnesium Level 1.9 MG/DL (1.8-2.4) Iron Level 82 ug/dL (50-175) Total Iron Binding Capacity 233 ug/dL (250-450) L Percent Iron Saturation 35 % (15-50) Unsaturated Iron Binding 151 ug/dL (112-346) Ferritin 90 NG/ML (8-388) Total Bilirubin 0.2 MG/DL (0.2-1.0) Gamma Glutamyl Transpeptidase 9 U/L (5-85) Aspartate Amino Transf (AST/SGOT) 16 U/L (15-37) Alanine Aminotransferase (ALT/SGPT) 14 U/L (12-78) Alkaline Phosphatase 57 U/L (46-116) Pro-B-Type Natriuretic Peptide 175 pg/mL (0-125) H Total Protein 6.5 G/DL (6.4-8.2) Albumin 3.2 G/DL (3.4-5.0) L Globulin 3.3 g/dL Albumin/Globulin Ratio 1.0 (1.0-2.7) Triglycerides Level 43 MG/DL (30-150) Cholesterol Level 136 MG/DL (< 200) LDL Cholesterol 80 mg/dL (<100) HDL Cholesterol 46 MG/DL (40-60) Cholesterol/HDL Ratio 3.0 (3.3-4.4) L Vitamin B12 Level 395 PG/ML (193-986) Folate 19.2 NG/ML (8.6-58.9) Thyroid Stimulating Hormone (TSH) 0.452 uiU/mL (0.358-3.740) HIV (1&2) Antibody Rapid Negative (NEGATIVE) Height (Feet): 5 Height (Inches): 7.00 Weight (Pounds): 150 Medications Current Medications Medications (Trade) Dose Ordered Sig/Alfonzo Route PRN Reason Start Time Stop Time Status Last Admin Dose Admin Acetaminophen (Tylenol) 500 mg Q6HR PRN ORAL Mild Pain/Temp > 100.5 09/15/18 00:30 10/15/18 00:29 Al Hydroxide/Mg Hydroxide (Mylanta) 30 ml Q4H PRN ORAL DYSPEPSIA 09/15/18 20:45 10/15/18 20:44 09/15/18 20:47 Bisacodyl (Dulcolax) 10 mg DAILYPRN PRN ORAL Constipation 09/15/18 11:30 10/15/18 11:29 09/15/18 20:47 Divalproex Sodium (Depakote) 500 mg EVERY 12 HOURS ORAL 09/15/18 21:00 10/15/18 20:59 09/16/18 08:29 Docusate Sodium (Colace) 100 mg TWICE A DAY ORAL 09/15/18 18:00 10/15/18 17:59 09/16/18 08:29 Gabapentin (Neurontin) 300 mg THREE TIMES A DAY ORAL 09/15/18 09:00 10/15/18 08:59 09/16/18 08:29 Lidocaine (Lidoderm 5% PATCH) 1 patch DAILY TDERMAL 09/15/18 09:00 10/15/18 08:59 09/16/18 08:29 Lorazepam (Ativan 2mg/ml 1ml) 1 mg Q2H PRN IV For Seizures 09/15/18 00:30 09/22/18 00:29 Magnesium Hydroxide (Mom) 30 ml Q4H PRN ORAL Constipation 09/15/18 11:30 10/15/18 11:29 09/15/18 16:07 Ondansetron HCl (Zofran) 4 mg Q6H PRN IVP Nausea & Vomiting 09/15/18 20:30 10/15/18 20:29 09/15/18 20:47 Sodium 1,000 ml @ 60 mls/hr [id number] IV 09/15/18 00:30 10/15/18 00:29 09/15/18 23:22 Assessment/Plan Assessment/Plan Hematology Consultation Note REQ MD: 09/16/18 REQ MD: Franco Sanchez RFA: Seizure RFC: Anemia evaluation ID 33-year-old female p/w seizure. Per EMS, patient was in [facility], Patient had witnessed seizure by bystanders, generalized tonic clonic, lasted 1 minutes. Unknown if head hit on ground. + post ictal phase. Patient denies tongue biting , no urinary incontinence. Patient has had seizures for several years. Anti seizure medications include Depakote. Patient's that she stopped taking the medication 5 days ago. Unclear why. She is not very cooperative with the history taking. No recent fever, chills, chest pain, sob, cough, n/v/d, abdominal pain. Currently denying BUCKLEY, neck pain, blurry vision, motor or sensory weakness. Allergies: No Known Allergies (Unverified , 09/14/18) Past Medical History: see triage record Past Surgical History: none Pertinent Family History: none Last Menstrual Period: NA Now: No Reviewed Nursing Documentation: PMH: Agreed; PSxH: Agreed Past Medical History: No Stated History Hx Neurological Problems: Yes - SEIZURES Reiew of Systems: negative except mentioned in HPI PE Vital Signs Last 24 Hour Vital Signs Date Time Temp Pulse Resp B/P (MAP) Pulse Ox O2 Delivery O2 Flow Rate FiO2 09/16/18 08:05 Room Air 09/16/18 08:00 97.7 92 25 112/70 (84) 93 09/16/18 07:41 54 09/16/18 04:00 97.0 98 16 133/76 (95) 99 09/16/18 04:00 75 09/16/18 00:00 71 09/16/18 00:00 97.0 64 20 114/62 (79) 98 09/15/18 21:00 Room Air 09/15/18 20:00 98.0 62 20 134/84 (101) 100 09/15/18 20:00 61 09/15/18 16:14 77 09/15/18 16:00 99.0 85 18 154/24 (67) 100 09/15/18 12:21 58 131/76 (94) 09/15/18 12:00 99.5 84 24 169/80 (109) 95 Sp02 EP Interpretation: reviewed, normal General Appearance: alert, GCS 15, non-toxic Head: normocephalic, atraumatic Eyes: bilateral eye normal inspection, bilateral eye PERRL ENT: normal ENT inspection, normal pharynx Neck: normal inspection, full range of motion, supple Respiratory: normal inspection, lungs clear, normal breath sounds, no respiratory distress Cardiovascular: normal inspection, regular rate, rhythm Gi: normal inspection, non tender, soft, non-distended, no guarding Msk: normal inspection, back normal, normal range of motion, non-tender Neurologic: normal inspection, alert, oriented x3 Psychiatric: normal inspection, judgement/insight normal, memory normal Skin: normal inspection, normal color, no rash, warm/dry Assessment and Recs # Anemia of chronic disease (or of iron deficiency) due to underlying chronic medical issues, multifactorial --> Anemia workup order if hgb downtrends to less than 10 --> No evidence of hemolysis is noted, peripheral smear has been reviewed. --> Hgb goal >7. Transfuse prn. --> Epogen or iron at this time is not particularly indicated --> Medications have been reviewed --> evaluate with Gi team prn # Seizure disorder due to running out of medications --> anti-seizure medications have been started # Hypocalcemia --> iv calcium given in the er --> replete with Ca++ as needed as per renal # Hypokalemia # Polysubstance (excluding opioids) dependence The timing of this note does not necessarily reflect the time of the patient was seen. Greatly appreciate consultation! Saturnino Koenig MD Sep 16, 2018 11:51
[2018-09-16 12:00] VITALS: BP 119/73
--- NOTE | 2018-09-16 14:47 | Nephrology Progress Note ---
Assessment/Plan Problem List: (1) Seizure disorder (2) Polysubstance (excluding opioids) dependence (3) Hypokalemia (4) Hypocalcemia Assessment Sz- abnormal chemistry and Lytes on admission, now corrected Anemia Plan IV Hydrate- Depakote Anemia meza OK to DC Subjective ROS Limited/Unobtainable: No Objective Objective Last 24 Hour Vital Signs Date Time Temp Pulse Resp B/P (MAP) Pulse Ox O2 Delivery O2 Flow Rate FiO2 09/16/18 12:00 97.3 49 20 119/73 (88) 100 09/16/18 11:47 52 09/16/18 08:05 Room Air 09/16/18 08:00 97.7 92 25 112/70 (84) 93 09/16/18 07:41 54 09/16/18 04:00 97.0 98 16 133/76 (95) 99 09/16/18 04:00 75 09/16/18 00:00 71 09/16/18 00:00 97.0 64 20 114/62 (79) 98 09/15/18 21:00 Room Air 09/15/18 20:00 98.0 62 20 134/84 (101) 100 09/15/18 20:00 61 09/15/18 16:14 77 09/15/18 16:00 99.0 85 18 154/24 (67) 100 Intake and Output 09/15/18 09/16/18 18:59 06:59 Intake Total 840 ml 938 ml Balance 840 ml 938 ml Intake Oral 360 ml 240 ml IV Total 480 ml 698 ml # Voids 3 # Bowel Movements 1 Laboratory Tests 09/16/18 05:40: White Blood Count 5.4, Red Blood Count 4.61, Hemoglobin 11.8L, Hematocrit 36.5L , Mean Corpuscular Volume 79L, Mean Corpuscular Hemoglobin 25.7L, Mean Corpuscular Hemoglobin Concent 32.3, Red Cell Distribution Width 13.3, Platelet Count 277, Mean Platelet Volume 7.4, Neutrophils (%) (Auto) 45.8, Lymphocytes (% ) (Auto) 42.7, Monocytes (%) (Auto) 8.7, Eosinophils (%) (Auto) 1.2, Basophils ( %) (Auto) 1.5, Sodium Level 139, Potassium Level 4.1, Chloride Level 103, Carbon Dioxide Level 26, Anion Gap 10, Blood Urea Nitrogen 13, Creatinine 1.0, Estimat Glomerular Filtration Rate > 60, Glucose Level 83, Hemoglobin A1c 5.2, Uric Acid 5.6, Calcium Level 8.7, Phosphorus Level 3.5, Magnesium Level 1.9, Iron Level 82, Total Iron Binding Capacity 233L, Percent Iron Saturation 35, Unsaturated Iron Binding 151, Ferritin 90, Total Bilirubin 0.2, Gamma Glutamyl Transpeptidase 9, Aspartate Amino Transf (AST/SGOT) 16, Alanine Aminotransferase (ALT/SGPT) 14, Alkaline Phosphatase 57, Pro-B-Type Natriuretic Peptide 175H, Total Protein 6.5, Albumin 3.2L, Globulin 3.3, Albumin/Globulin Ratio 1.0, Triglycerides Level 43, Cholesterol Level 136, LDL Cholesterol 80, HDL Cholesterol 46, Cholesterol/HDL Ratio 3.0L, Vitamin B12 Level 395, Folate 19.2, Thyroid Stimulating Hormone (TSH) 0.452 09/16/18 05:45: HIV (1&2) Antibody Rapid Negative Height (Feet): 5 Height (Inches): 7.00 Weight (Pounds): 150 General Appearance: no apparent distress Objective no change Anirudh Mahoney MD Sep 16, 2018 14:47
[2018-09-16 16:00] VITALS: BP 124/65
--- NOTE | 2018-09-16 18:49 | Cardiology Progress Note ---
Assessment/Plan Assessment/Plan The patient is seen and examined, full consult note will be dictated. Objective Last 24 Hour Vital Signs Date Time Temp Pulse Resp B/P (MAP) Pulse Ox O2 Delivery O2 Flow Rate FiO2 09/16/18 16:00 97.9 74 21 124/65 (84) 98 09/16/18 15:15 90 09/16/18 12:00 97.3 49 20 119/73 (88) 100 09/16/18 11:47 52 09/16/18 08:05 Room Air 09/16/18 08:00 97.7 92 25 112/70 (84) 93 09/16/18 07:41 54 09/16/18 04:00 97.0 98 16 133/76 (95) 99 09/16/18 04:00 75 09/16/18 00:00 71 09/16/18 00:00 97.0 64 20 114/62 (79) 98 09/15/18 21:00 Room Air 09/15/18 20:00 98.0 62 20 134/84 (101) 100 09/15/18 20:00 61 Intake and Output 09/15/18 09/16/18 19:00 07:00 Intake Total 900 ml 938 ml Balance 900 ml 938 ml Intake Oral 360 ml 240 ml IV Total 540 ml 698 ml # Voids 3 # Bowel Movements 1 Laboratory Tests Test 09/16/18 05:40 09/16/18 05:45 White Blood Count 5.4 K/UL (4.8-10.8) Red Blood Count 4.61 M/UL (4.20-5.40) Hemoglobin 11.8 G/DL (12.0-16.0) L Hematocrit 36.5 % (37.0-47.0) L Mean Corpuscular Volume 79 FL (80-99) L Mean Corpuscular Hemoglobin 25.7 PG (27.0-31.0) L Mean Corpuscular Hemoglobin Concent 32.3 G/DL (32.0-36.0) Red Cell Distribution Width 13.3 % (11.6-14.8) Platelet Count 277 K/UL (150-450) Mean Platelet Volume 7.4 FL (6.5-10.1) Neutrophils (%) (Auto) 45.8 % (45.0-75.0) Lymphocytes (%) (Auto) 42.7 % (20.0-45.0) Monocytes (%) (Auto) 8.7 % (1.0-10.0) Eosinophils (%) (Auto) 1.2 % (0.0-3.0) Basophils (%) (Auto) 1.5 % (0.0-2.0) Sodium Level 139 MMOL/L (136-145) Potassium Level 4.1 MMOL/L (3.5-5.1) Chloride Level 103 MMOL/L (98-107) Carbon Dioxide Level 26 MMOL/L (21-32) Anion Gap 10 mmol/L (5-15) Blood Urea Nitrogen 13 mg/dL (7-18) Creatinine 1.0 MG/DL (0.55-1.30) Estimat Glomerular Filtration Rate > 60 mL/min (>60) Glucose Level 83 MG/DL (74-106) Hemoglobin A1c 5.2 % (4.3-6.0) Uric Acid 5.6 MG/DL (2.6-7.2) Calcium Level 8.7 MG/DL (8.5-10.1) Phosphorus Level 3.5 MG/DL (2.5-4.9) Magnesium Level 1.9 MG/DL (1.8-2.4) Iron Level 82 ug/dL (50-175) Total Iron Binding Capacity 233 ug/dL (250-450) L Percent Iron Saturation 35 % (15-50) Unsaturated Iron Binding 151 ug/dL (112-346) Ferritin 90 NG/ML (8-388) Total Bilirubin 0.2 MG/DL (0.2-1.0) Gamma Glutamyl Transpeptidase 9 U/L (5-85) Aspartate Amino Transf (AST/SGOT) 16 U/L (15-37) Alanine Aminotransferase (ALT/SGPT) 14 U/L (12-78) Alkaline Phosphatase 57 U/L (46-116) Pro-B-Type Natriuretic Peptide 175 pg/mL (0-125) H Total Protein 6.5 G/DL (6.4-8.2) Albumin 3.2 G/DL (3.4-5.0) L Globulin 3.3 g/dL Albumin/Globulin Ratio 1.0 (1.0-2.7) Triglycerides Level 43 MG/DL (30-150) Cholesterol Level 136 MG/DL (< 200) LDL Cholesterol 80 mg/dL (<100) HDL Cholesterol 46 MG/DL (40-60) Cholesterol/HDL Ratio 3.0 (3.3-4.4) L Vitamin B12 Level 395 PG/ML (193-986) Folate 19.2 NG/ML (8.6-58.9) Thyroid Stimulating Hormone (TSH) 0.452 uiU/mL (0.358-3.740) HIV (1&2) Antibody Rapid Negative (NEGATIVE) Mustapha Valenzuela MD Sep 16, 2018 18:49
--- NOTE | 2018-09-16 19:21 | NUR ---
HAND-OFF: Report given to Ying Martinez RN.
--- NOTE | 2018-09-16 19:30 | NUR ---
NURSE NOTES: Received report from CINDY Green. Patient is awake lying semi-jiménez's watching TV; resting comfortably. No signs of acute distress noted; denies pain at this time. AOx4; able to make needs known. Ambulates independently. Patient waiting for friend to pick her up. Bed at lowest position, brakes on, siderails up x2. Call light within reach. Will continue to monitor.
--- NOTE | 2018-09-16 19:41 | NUR ---
NURSE NOTES: Patient was discharged home accompanied by friend, Charbel, without incident. No signs of acute distress noted; denies pain at this time. Vital signs stable upon discharge. Patient taken off Tele box and d/c'ed from IV site; tolerated well. Belongings list checked with patient. Discharge packet with medication prescription given and explained to patient; verbalized understanding.
--- NOTE | 2018-09-17 08:35 | Discharge Summary ---
Discharge Summary Discharge Summary _ DATE OF ADMISSION: 09/14/2018 DATE OF DISCHARGE: 09/16/2018 DISCHARGED BY: Dr. Daniel Shannon CONSULTANTS: Dr. Mustapha Steward [facility] COURSE: Patient is a 33-year-old female, who presented to ED due to seizure. Per EMS, patient was in [place], had a witnessed seizure by by standards. Seizure was described to be generalized tonic-clonic that lasted for approximately 1 minute. Unknown if she had head trauma. Patient was in post ictal phase. Patient denied tongue biting, no urinary incontinence. He has medical history of seizure for several years. She has been on antiseizure medications including Depakote. The patient admitted she stopped taking the medications for 5 days. She denied any fever, chills, chest pain, shortness of breath, cough, no nausea vomiting or abdominal pain. She denied headache, neck pain, blurry vision, motor or sensory weakness. On elevation at the ED, vital signs were stable. Blood work did not show any leukocytosis, hemoglobin was 11, hematocrit 33 with low indices. Potassium was 2.3, calcium 5.9, troponin was negative. Urine toxicology screen was positive for amphetamine, cocaine and marijuana. She had an EKG done that showed normal sinus rhythm with no acute changes. Chest x-ray did not show any acute disease. Head CT was negative for acute intracranial hemorrhage, edema or mass- effect. She was given IV calcium for hypocalcemia. She was given potassium supplement. She was then admitted for evaluation of acute seizure disorder, hypokalemia, hypocalcemia and polysubstance dependence. Patient was admitted to telemetry. She was placed on seizure precaution and frequent neuro checks. She was given IV hydration. She was resumed on Depakote 250 mg tid. Neuro evaluation was done. Patient has history of seizure disorder beginning at the age of 12 or 13 years old. Last month, she was apparently at [facility] for [facility] due seizure. Unknown of work-up done there. Per neurologist recommendation, depakote was increased to 500 mg twice daily. HIV and syphilis screen negative. Anemia workup showed normal iron and ferritin levels. Patient did not require epogen or iron supplementation. She complained of back pain. She was given lidocaine patch and Neurontin. Lumbar x-ray done was negative. Potassium and calcium were corrected. There were no further seizure events. Patient was eventually discharged home. FINAL DIAGNOSES: Seizure disorder with acute exacerbation Hypokalemia Hypocalcemia Polysubstance dependence Anemia of chronic disease Lumbago DISPOSITION: Patient was discharged home. DISCHARGE MEDICATIONS: Refer to Discharge Medication List. DISCHARGE INSTRUCTIONS: Follow-up in a week. I have been assigned to complete a discharge summary on this account, I was not involved with the patient's management. Sarahy Darnell NP Sep 17, 2018 08:35
--- NOTE | 2018-09-17 14:27 | Cardiology Report ---
APPROVED REPORT EKG Measurement Heart [id number] Sinus bradycardia Otherwise normal ECG
== END 2018-09-16 18:30 | disposition home or self-care (01) | DRG 53 ==
LOC: EDBD 19:25 → EMR 19:44 → 2E 20:52 → EDBEDREQ 21:35 → 2E 09-16 06:03
DX: G40.909 Epilepsy, unspecified, not intractable, without status epilepticus (principal); E83.51 Hypocalcemia; I10 Essential (primary) hypertension; E87.6 Hypokalemia; F32.9 Major depressive disorder, single episode, unspecified; D63.8 Anemia in other chronic diseases classified elsewhere; M54.5 Low back pain; F14.20 Cocaine dependence, uncomplicated; F15.20 Other stimulant dependence, uncomplicated; Z87.891 Personal history of nicotine dependence
CPT/HCPCS: 36415; 70450; 71045; 72020; 80053; 80061; 80164; 80307; 80329; 81003; 81025; 82550; 82607; 82728; 82746; 82962; 82977; 83036; 83540; 83550; 83735; 83880; 84100; 84443; 84484; 84550; 85025; 86140; 86592; 86703; 86780; 87081; 93005; 96365; 99291; J2405; J8499

== ENCOUNTER 2018-10-14 08:26 | Emergency (ER) | payer MEDICAID, OTHER ==
[~2018-10-14] VITALS: Ht 165.1 cm; Wt 49.9 kg
[~2018-10-14 08:26] MED LIST: DEPAKOTE125 MG PO
--- NOTE | 2018-10-14 08:57 | NUR ---
ED Nurse Note: Venipuncture performed using 23g to LAC. Patient tolerated the procedure without difficulty.
[2018-10-14 09:01] VITALS: BP 136/72
--- NOTE | 2018-10-14 09:07 | NUR ---
ED Nurse Note: pt biba ra 26 no complaints per pt. pt uncooperative seems underthe influence blood and urine sent . pt wanders and speech is garbled. will monitor. belongings list done and items placed in locker #3. pt is not staying still for ekg and does not want ot be placed on monitor.
[2018-10-14 09:12] LABS: BASOPHILS % (AUTO) 0.7 % (0.0-2.0); EOSINOPHILS % (AUTO) 0.1 % (0.0-3.0); HEMATOCRIT 41.6 % (37.0-47.0); HEMOGLOBIN 13.3 G/DL (12.0-16.0); LYMPHOCYTES % (AUTO) 10.4 % (20.0-45.0); MEAN CORPUSCULAR VOLUME 79 FL (80-99); NEUTROPHILS % (AUTO) 83.9 % (45.0-75.0); PLATELET COUNT 267 K/UL (150-450); RED BLOOD COUNT 5.29 M/UL (4.20-5.40); RED CELL DISTRIBUTION WIDTH 14.3 % (11.6-14.8); WHITE BLOOD COUNT 13.1 K/UL (4.8-10.8)
[2018-10-14 09:16] LABS: ANION GAP 9 mmol/L (5-15); BLOOD UREA NITROGEN 14 mg/dL (7-18); CALCIUM 9.2 MG/DL (8.5-10.1); CARBON DIOXIDE 28 MMOL/L (21-32); CHLORIDE 104 MMOL/L (98-107); CREATININE 1.1 MG/DL (0.55-1.30); POTASSIUM 3.6 MMOL/L (3.5-5.1); SODIUM 141 MMOL/L (136-145)
[2018-10-14] MEDS: ZyPREXA Zydis 10mg tab ORAL ONE (09:20)
[2018-10-14 09:32] LABS: ALANINE AMINOTRANSFERASE 18 U/L (12-78); ALBUMIN 4.2 G/DL (3.4-5.0); ALKALINE PHOSPHATASE 62 U/L (46-116); ASPARTATE AMINO TRANSFERASE 24 U/L (15-37); BILIRUBIN,TOTAL 0.4 MG/DL (0.2-1.0)
[2018-10-14 10:09] LABS: APPEARANCE,URINE CLEAR; BILIRUBIN, URINE 1+ (NEGATIVE); COLOR,URINE BROWN; GLUCOSE, URINE (UA) NEGATIVE (NEGATIVE); KETONES,URINE 3+ (NEGATIVE); LEUKOCYTE ESTERASE ,URINE 1+ (NEGATIVE); NITRITE,URINE NEGATIVE (NEGATIVE); PH,URINE 5 (4.5-8.0); PROTEIN,URINE 2+ (NEGATIVE); UROBILINOGEN,URINE 4 MG/DL (0.0-1.0)
--- NOTE | 2018-10-14 10:28 | NUR ---
ED Nurse Note: pt refuses to be placed on monitor restless. pt given food will monitor.
--- NOTE | 2018-10-14 11:52 | NUR ---
ED Nurse Note: pt in bed refused vs. sitter at bedside.
--- NOTE | 2018-10-14 12:00 | Emergency Room Report ---
History of Present Illness General Chief Complaint: General Complaint Source: Patient (Ondina Delong DO) Present Illness HPI This patient is brought in by EMS. She was walking the sidewalks naked. EMS were called by a bystander to bring in the patient. The patient admitted to them and doing methamphetamine for 4 days straight. The patient is not speaking currently. She will shake her head that she did use methamphetamine for 4 days. She does not answer any other questions overall. She denies pain. She will only to medicate by shaking her head yes or no at this time. (Ondina Delong DO) Allergies: Coded Allergies: No Known Allergies (Unverified , 09/14/18) Patient History Past Medical History: see triage record, seizures Social History: Reports: drug use; Denies: smoking, alcohol use Now: No Reviewed Nursing Documentation: PMH: Agreed; PSxH: Agreed (Ondina Delong DO) Nursing Documentation-PMH Hx Seizures: Yes (Ondina Delong DO) Review of Systems All Other Systems: limited (Ondina Delong DO) Physical Exam Vital Signs Date Time Temp Pulse Resp B/P (MAP) Pulse Ox O2 Delivery O2 Flow Rate FiO2 10/14/18 08:27 110 18 136/72 99 Room Air Sp02 EP Interpretation: reviewed, normal General Appearance: no apparent distress, alert, GCS 15, non-toxic Head: normocephalic, atraumatic Eyes: bilateral eye normal inspection, bilateral eye PERRL ENT: hearing grossly normal, normal pharynx, no angioedema, normal voice Neck: full range of motion, supple/symm/no masses Respiratory: chest non-tender, lungs clear, normal breath sounds, no respiratory distress, no retraction, no accessory muscle use, speaking full sentences Cardiovascular #1: regular rate, rhythm, no edema Gastrointestinal: normal bowel sounds, non tender, soft, non-distended, no guarding, no rebound Rectal: deferred Musculoskeletal: back normal, normal range of motion Neurologic: alert, responsive, motor strength/tone normal, grossly normal Psychiatric: other - Difficult to asses. PT refuses to speak. Skin: normal color, no rash, warm/dry, well hydrated (Ondina Delong DO) Medical Decision Making Diagnostic Impression: Primary Impression: Cocaine abuse Additional Impressions: Polysubstance abuse Psychosis Qualified Codes: F23 - Brief psychotic disorder ER Course This patient presented intoxicated on cocaine and THC. She said she was doing methamphetamine also. She remained intoxicated during her ED course under my care. She was unable to articulate anything sensical. She is staying with plans to allow her to detox here in the emergency department and then reassess her need for psychiatric care. I'm unsure if this is psychiatric in etiology or more likely drug-induced. I did not identify any infection or other etiology for her symptoms. The patient is transferred over to the care of Dr. Veronica. Laboratory Tests Test 10/14/18 08:55 10/14/18 10:00 White Blood Count 13.1 K/UL (4.8-10.8) H Red Blood Count 5.29 M/UL (4.20-5.40) Hemoglobin 13.3 G/DL (12.0-16.0) Hematocrit 41.6 % (37.0-47.0) Mean Corpuscular Volume 79 FL (80-99) L Mean Corpuscular Hemoglobin 25.1 PG (27.0-31.0) L Mean Corpuscular Hemoglobin Concent 31.9 G/DL (32.0-36.0) L Red Cell Distribution Width 14.3 % (11.6-14.8) Platelet Count 267 K/UL (150-450) Mean Platelet Volume 8.7 FL (6.5-10.1) Neutrophils (%) (Auto) 83.9 % (45.0-75.0) H Lymphocytes (%) (Auto) 10.4 % (20.0-45.0) L Monocytes (%) (Auto) 5.0 % (1.0-10.0) Eosinophils (%) (Auto) 0.1 % (0.0-3.0) Basophils (%) (Auto) 0.7 % (0.0-2.0) Urine HCG, Qualitative Negative (NEGATIVE) Sodium Level 141 MMOL/L (136-145) Potassium Level 3.6 MMOL/L (3.5-5.1) Chloride Level 104 MMOL/L (98-107) Carbon Dioxide Level 28 MMOL/L (21-32) Anion Gap 9 mmol/L (5-15) Blood Urea Nitrogen 14 mg/dL (7-18) Creatinine 1.1 MG/DL (0.55-1.30) Estimate Glomerular Filtration Rate > 60 mL/min (>60) Glucose Level 90 MG/DL (74-106) Calcium Level 9.2 MG/DL (8.5-10.1) Total Bilirubin 0.4 MG/DL (0.2-1.0) Aspartate Amino Transferase (AST) 24 U/L (15-37) Alanine Aminotransferase (ALT) 18 U/L (12-78) Alkaline Phosphatase 62 U/L (46-116) Total Protein 8.3 G/DL (6.4-8.2) H Albumin 4.2 G/DL (3.4-5.0) Globulin 4.1 g/dL Albumin/Globulin Ratio 1.0 (1.0-2.7) Thyroid Stimulating Hormone (TSH) 0.780 uiU/mL (0.358-3.740) Salicylates Level 2.2 ug/mL (2.8-20) L Acetaminophen Level < 2 MCG/ML (10-30) L Valproic Acid Level < 3 MCG/ML (50-100) L Serum Alcohol < 3 mg/dL Urine Color Brown Urine Appearance Clear Urine pH 5 (4.5-8.0) Urine Specific [place] 1.025 (1.005-1.035) Urine Protein 2+ (NEGATIVE) H Urine Glucose (UA) Negative (NEGATIVE) Urine Ketones 3+ (NEGATIVE) H Urine Blood 3+ (NEGATIVE) H Urine Nitrite Negative (NEGATIVE) Urine Bilirubin 1+ (NEGATIVE) H Urine Ictotest Negative (NEGATIVE) Urine Urobilinogen 4 MG/DL (0.0-1.0) H Urine Leukocyte Esterase 1+ (NEGATIVE) H Urine RBC 0-2 /HPF (0 - 2) Urine WBC 0-2 /HPF (0 - 2) Urine Squamous Epithelial Cells Occasional /LPF Urine Bacteria Few /HPF (NONE) Urine Mucus Moderate /LPF (NONE/OCC) H Urine Opiates Screen Negative (NEGATIVE) Urine Barbiturates Screen Negative (NEGATIVE) Phencyclidine (PCP) Screen Negative (NEGATIVE) Urine Amphetamines Screen Negative (NEGATIVE) Urine Benzodiazepines Screen Negative (NEGATIVE) Urine Cocaine Screen Positive (NEGATIVE) H Urine Marijuana (THC) Screen Positive (NEGATIVE) H (Ondina Delong DO) ER Course Patient signout to me. She came in with psychosis after using drugs. She slept for several hours. Now she is back to baseline. No suicidal thoughts or homicidal thought. She is walking without any difficulty. No active for 5150. We'll discharge home. This patient is a chronic risk of self injury due to poor impulse control, limited coping skills, and judgment intermittently impaired by intoxication. I believe that the available clinical evidence to suggest that these characteristics derived primarily from personality disorder and are likely very stable over time. Hospitalization would likely attenuate risk of self-harm only during longterm period, without lasting risk reduction. Serious self-harm , while possible, would likely be inadvertent, and because of impulsivity, and foreseeable. For these reasons, I do not believe hospitalization would provide meaningful reduction in risk of self-harm. (Jim Cole MD) EKG Diagnostic Results Rate: bradycardiac Rhythm: other - S. bradycardia ST Segments: no acute changes (Ondina Delong DO) Rhythm Strip Diag. Results EP Interpretation: yes Rate: 50's Rhythm: no PVC's, no ectopy, other - s.bradycardia (Ondina Delong DO) Last Vital Signs Date Time Temp Pulse Resp B/P (MAP) Pulse Ox O2 Delivery O2 Flow Rate FiO2 10/14/18 09:01 110 18 Room Air 10/14/18 09:01 136/72 99 (Ondina Delong DO) Status: improved (Jim Cole MD) Disposition: HOME, SELF-CARE Condition: Stable Referrals: NON PHYSICIAN (PCP) Additional Instructions: Follow-up with your doctor in 7 days. Stop using drugs. Go to rehabilitation. Return if worse. Ondina Delong DO Oct 14, 2018 12:00 Jim Cole MD Oct 14, 2018 23:56
--- NOTE | 2018-10-14 12:45 | NUR ---
ED Nurse Note: sitter at bedside pt resting in bed will monitor.
--- NOTE | 2018-10-14 14:05 | NUR ---
ED Nurse Note: sitter at bedside . Pt will be d/c'd once sobber and alert.
--- NOTE | 2018-10-14 15:25 | Diagnostic Imaging Report ---
Indication: Altered mental status Technique: Continuous helical CT scanning of the head was performed without intravenous contrast material. Axial and coronal 5 mm sections were generated. Radiation dose was minimized using automated exposure control Dose: Total Dose Length Product - DLP 1287.[address] Dose Index - CTDIvol(s) 70.38 mGy. Comparison: None FINDINGS: There is no acute intracranial hemorrhage, mass effect or shift of the midline structures. The ventricles, cisterns and sulci are normal for age. Visualized mastoid air cells and paranasal sinuses are unremarkable. No focal lesions of the bony calvarium or soft tissues of the scalp are seen. IMPRESSION: No evidence of acute intracranial hemorrhage, mass effect or midline shift. MRI may be obtained for more sensitive evaluation as clinically indicated. The CT scanner at [facility] is accredited by the [employer] and the scans are performed using protocols designed to limit radiation exposure to as low as reasonably achievable to attain images of sufficient resolution adequate for diagnostic evaluation.
[2018-10-14 16:27] VITALS: BP 111/72
--- NOTE | 2018-10-14 16:27 | NUR ---
ED Nurse Note: pt in deep sleep vss will monitor.
[2018-10-14 18:31] VITALS: BP 116/84
--- NOTE | 2018-10-14 19:08 | NUR ---
HAND-OFF: Report given to Soha lee.
--- NOTE | 2018-10-14 19:30 | NUR ---
ED Nurse Note: Recieved report to resume care, pt in bed sleeping, arouses easily to verbal stimuli, pt deneis pain or any distress, pt on cardiac monitoring, pt given sandwich and juice, pt states she wants to rest more, md aware, will discharge when pt is completely awakened and safe for discharge.
[2018-10-14 20:15] VITALS: BP 122/79
--- NOTE | 2018-10-14 22:00 | NUR ---
ED Nurse Note: pt awake and alert, pt behavior is appropriate, pt ambulating to bathroom, gait steady, denies pain, no sob or labored breathing, pt is calm and cooperative, informed, will conitnue to monitor and prepare for discharge to home.
[2018-10-14 22:15] VITALS: BP 129/71
--- NOTE | 2018-10-15 00:15 | NUR ---
ED Nurse Note: pt awake and alert, ambulating about department, pt states she is not homeless and does have a home, pt becomes agitated when asked address, pt asked for clothing and to go home, pt given clothesd, informed of pt wanting d/c, will assist with proper discharge as needed.
[2018-10-15 00:20] VITALS: BP 125/79
--- NOTE | 2018-10-15 00:40 | NUR ---
ER DISCHARGE NOTE: Patient is cleared to be discharged per ERMD, pt is aox4, on room air, with stable vital signs. pt was given dc and prescription instructions, pt was able to verbalize understanding, pt id band removed without complications. pt is able to ambulate with steady gait. pt took all belongings. nad noted during d/c to home, pt continues to not give address to admitting personell.
[2018-10-15 00:50] VITALS: BP 125/79
--- NOTE | 2018-10-15 13:36 | Cardiology Report ---
APPROVED REPORT EKG Measurement Heart [id number] Sinus bradycardia Rightward axis T wave abnormality, consider anterior ischemia Abnormal ECG
== END 2018-10-15 00:40 | disposition home or self-care (01) ==
LOC: EDUNIT# 08:26 → EDBD 08:26 → EMR 08:52
DX: F14.10 Cocaine abuse, uncomplicated (principal); F15.10 Other stimulant abuse, uncomplicated; F29 Unspecified psychosis not due to a substance or known physiological condition
CPT/HCPCS: 36415; 70450; 80053; 80164; 80307; 80329; 81001; 81025; 82962; 84443; 85025; 93005; 99284